=== PATIENT | male | born 1990 | race Caucasian/White ===

== ENCOUNTER 2020-08-07 15:22 | Emergency (ER) | payer OTHER, MEDICAID, SELFPAY ==
[2020-08-07 15:54] VITALS: BP 143/73; PULSE 73; RESP 18; TEMP 36.7; O2SAT 98; BMI 25.8
[2020-08-07 16:08] LABS: Bacteria Urine None Seen; RBC Urine None Seen (0-5/HPF); WBC Urine None Seen (0-5/HPF)
[2020-08-07] MEDS: CYCLOBENZAPRINE 10 MG TABLET PO (16:11)
[2020-08-07] MEDS: KETOROLAC 60 MG/2 ML VIAL 30 MG IM (16:11)
[2020-08-07] MEDS: LIDOCAINE PATCH 1 EACH ADH..PATCH TOP (16:11)
--- NOTE | 2020-08-07 16:22 | ED.BACK ---
HPI - Back Pain/Injury <Rodrigue Mylesmicheal [facility] - Last Filed: 08/07/20 18:59> General Chief Complaint: Back Pain/Injury Stated Complaint: back pain Time Seen by Provider: 08/07/20 15:50 Source: patient Mode of arrival: Ambulatory Limitations: no limitations History of Present Illness HPI Narrative: This is a 29-year-old male, nonsmoker, who is a recovered substance abuse history for heroin presents to ED with chief complain of low lumbar pain for last 4 days. Patient denies related urinary symptoms such as urgency, frequency, dysuria, hematuria. He denies fever, chills, nausea or vomiting. Patient reports pain at times radiates down to bilateral legs and sharp character but in baseline he reports dull aches. Pain worsens with sitting and improves with standing. Patient reports intact sensation in groin. Denies incontinence for bowel or bladder. Patient denies chest pain, dyspnea, or abdominal pain or back rash. Patient was traveling from [facility] coming home experiencing worsening back stiffening and pain with radiating pressure to his bilateral testicles. He denies mass or swelling to testes. Patient had used Tylenol 2 tabs and ibuprofen alternating every 3-4 last couple of days and had use cool packs and warm rice bag, hot tubs. He felt better with warm packs and hot tub use. Related Data Home Medications Medication Instructions Recorded Confirmed Motrin 08/07/20 Tylenol 08/07/20 Previous Rx's Medication Instructions Recorded cyclobenzaprine 10 mg PO BID PRN #8 tab 08/07/20 lidocaine 2 patch TOPICAL DAILY PRN #30 ea 08/07/20 Allergies Allergy/AdvReac Type Severity Reaction Status Date / Time No Known Drug Allergies Allergy Verified 08/07/20 16:00 Review of Systems <Rodrigue La [facility] - Last Filed: 08/07/20 18:59> Review of Systems Narrative: General: Denies fever, chills, fatigue, malaise, sweats. HEENT: Denies sinus pain, ear pain, sore throat, difficulty swallowing, dizziness. Respiratory: Denies dyspnea, cough, wheezing, hemoptysis, sputum. Cardiovascular: Denies chest pain, palpitations, orthopnea, edema. Gastrointestinal: Denies nausea, vomiting, abdominal pain, diarrhea, constipation, melena. : See HPI Musculoskeletal: See HPI Skin: Denies rash, skin lesions, or other. Neurologic: Denies weakness, headache, numbness, change in speech, confusion, seizures, incoordination. Psychiatric: No concerning psychosocial issues. 12-point review of systems is negative except for those stated above. Patient History <RU Roman - Last Filed: 08/07/20 18:59> Surgical History No pertinent past surgical history Social History Smoking Status: Never smoker Smoking Status: Never smoker alcohol intake frequency: 0-2 drinks per day Substance Use Type: marijuana Exam <ALE RomanP - Last Filed: 08/07/20 18:59> Narrative Exam Narrative: GEN: Alert, oriented x 3, well appearing and nourished, and in no acute distress. Head: Normal cephalic, atraumatic. No scalp or temporal tenderness, palpable mass or rash. EYES: Pupils are equal, round, and reactive to light and accommodation. Extraocular muscles are intact bilaterally. There is no subconjunctival hemorrhage, exudate and sclera non-icteric. ENT: Hearing grossly intact. Airway patent. Neck: Trachea in midline. No JVD, non-tender without lymphadenopathy. No masses or thyroid megaly. Supple, non-tender and no meningeal signs. CARDIAC: Normal regular rate and rhythm without murmurs, gallops, or rubs. No chest wall tenderness. No peripheral edema, cyanosis or pallor. Capillary refill is less than 2 seconds. RESPIRATORY: Lungs are clear to auscultate bilaterally. No cough, wheezes, rales, or rhonchi. No stridor, respiratory distress, increase work of breathing, or accessary muscle used. ABD: Abdomen soft, nontender and non-distended. No guarding or rebound tenderness to palpate. Bowel sounds are normal in all 4 quadrants. There is no palpable masses or organomegaly. EXT: Full painless ROM of all extremities with no loss of sensation, strength, effusion or edema. Increasing back pain with bilateral plantar flexion. Bilateral patellar reflexes intact. SKIN: Warm, dry, normal color for patient. No erythema, lesions or rash over visible areas. BACK: No deformity or crepitance or rash. Tender to palpate in spinous, paraspinous in lumbar region. No mass, erythema, or warmth. Patient ambulatory. NEUROLOGICAL: Alert and oriented to place, time and person. Sensation and motor function intact bilaterally. No facial droops, dysphasia. PSYCHIATRIC: Good judgement and reason, without hallucinations, abnormal affect or abnormal behaviors during the examination. Patient is not suicidal. Initial Vital Signs Initial Vital Signs: Vital Signs Temperature 98.0 F 08/07/20 15:54 Pulse Rate 73 08/07/20 15:54 Respiratory Rate 18 08/07/20 15:54 Blood Pressure 143/73 H 08/07/20 15:54 Pulse Oximetry 98 08/07/20 15:54 External: normal external exam, no edema, no erythema, no scrotal swelling and nontender Penis: normal penis Meatus: meatus normal Scrotum: scrotum normal, no ecchymosis, not edematous, not erythematous, no hydroceles, no masses and no scrotal swelling Testes: normal, testicular lie normal, no blue dot sign, not enlarged and no epidiymal masses Other: Chaperoned by Lito Gibbons <Radha Dumont DO - Last Filed: 08/08/20 07:37> Initial Vital Signs Initial Vital Signs: Vital Signs Temperature 98.0 F 08/07/20 15:54 Pulse Rate 73 08/07/20 15:54 Respiratory Rate 18 08/07/20 15:54 Blood Pressure 143/73 H 08/07/20 15:54 Pulse Oximetry 98 08/07/20 15:54 Scores <RU Roman - Last Filed: 08/07/20 18:59> GCS Dell coma scale eye opening: Spontaneous Dell coma scale verbal response: Orientated [place] coma scale motor response: Obey commands Dell coma scale total score: 15 Course <RU Roman - Last Filed: 08/07/20 18:59> Orders Ordered: Discontinued Medications Cyclobenzaprine HCl (Cyclobenzaprine 10 Mg Tablet) 10 mg PO NOW ONE Stop: 08/07/20 16:04 Last Admin: 08/07/20 16:11 Dose: 10 mg Documented by: DENNY Ketorolac Tromethamine (Ketorolac 60 Mg/2 Ml Vial) 30 mg IM NOW ONE Stop: 08/07/20 16:04 Last Admin: 08/07/20 16:11 Dose: 30 mg Documented by: DENNY Lidocaine (Lidocaine Patch 1 Each Adh..Patch) 1 each TOP NOW ONE Stop: 08/07/20 16:04 Last Admin: 08/07/20 16:11 Dose: 1 each Documented by: DENNY Reevaluation(s) Reevaluation #1: Pain starting to improve. Time: 16:58 Vital Signs Vital signs: Vital Signs - 8 hr 08/07/20 15:54 08/07/20 17:04 Temperature 98.0 F Pulse Rate 73 63 Respiratory Rate 18 18 Blood Pressure 143/73 H 122/68 Pulse Oximetry 98 99 <Radha Dumont DO - Last Filed: 08/08/20 07:37> Orders Ordered: Discontinued Medications Cyclobenzaprine HCl (Cyclobenzaprine 10 Mg Tablet) 10 mg PO NOW ONE Stop: 08/07/20 16:04 Last Admin: 08/07/20 16:11 Dose: 10 mg Documented by: DENNY Ketorolac Tromethamine (Ketorolac 60 Mg/2 Ml Vial) 30 mg IM NOW ONE Stop: 08/07/20 16:04 Last Admin: 08/07/20 16:11 Dose: 30 mg Documented by: DENNY Lidocaine (Lidocaine Patch 1 Each Adh..Patch) 1 each TOP NOW ONE Stop: 08/07/20 16:04 Last Admin: 08/07/20 16:11 Dose: 1 each Documented by: DENNY Vital Signs Vital signs: Vital Signs - 8 hr 08/07/20 15:54 08/07/20 17:04 Temperature 98.0 F Pulse Rate 73 63 Respiratory Rate 18 18 Blood Pressure 143/73 H 122/68 Pulse Oximetry 98 99 MDM - Back Pain/Injury <RU Roman - Last Filed: 08/07/20 18:59> Differential Diagnosis Differential diagnosis: Likely strain of lumbar region, pyelonephritis and other (Renal stone, testicular torsion) Medical Records Attestation: I reviewed the patient's medical records. Lab Data Attestation: I reviewed the patient's lab results. Labs: Lab Results 08/07/20 Range/Units 16:07 Urine RBC None seen (0-5/HPF) Urine WBC None seen (0-5/HPF) Ur Squamous Epith Cells 0-1 /hpf (0-5/HPF) Urine Bacteria None seen (None) Ur Culture Indicated? Cult not indicated Urine Dip Bedside Urine Glucose Negative Bedside Urine Bilirubin + 1 Bedside Urine Ketone +/- 5 Urine Specific [place] 1.030 Bedside Urine Occult Blood - Negative Bedside Urine pH 5.5 Bedside Urine Protein +/- 15 Bedside Urine Urobilinogen - Negative Bedside Urine Nitrite - Negative Bedside Urine Leukocytes - Negative Esterase MDM Narrative Medical decision making narrative: This is a 29-year-old male presents to ED with nontraumatic low back pain for last 4 days without incontinence, saddle anesthesia, fever, rash, loss of strength in lower extremities, urinary symptoms. Patient states sitting prolonged time worsens the pain and standing improves the pain. He has been using hot and cold packs, hot tubs and [id number] Tylenol and Motrin without significant improvement. Patient was riding car 2 hours before coming into ED complaining worsening discomfort and neck stiffness. Physical exam was unremarkable. exam was done with unremarkable findings given patient reported back pain with radiating pressure discomfort to his groin region. Patient was medicated with IM Toradol, Lidocaine patch, and Flexeril and patient reports starting to improve symptoms when he was re-evaluated. He was discharged to home with same medications and return precautions discussed. Patient advised to return to ED if groin or testicular discomfort recurs or worse than which warrants ultrasound test to rule out testicular torsion. Patient verbalized understanding and agreement with the treatment plan. <Radha Dumont, DO - Last Filed: 08/08/20 07:37> Lab Data Labs: Lab Results 08/07/20 Range/Units 16:07 Urine RBC None seen (0-5/HPF) Urine WBC None seen (0-5/HPF) Ur Squamous Epith Cells 0-1 /hpf (0-5/HPF) Urine Bacteria None seen (None) Ur Culture Indicated? Cult not indicated Urine Dip Bedside Urine Glucose Negative Bedside Urine Bilirubin + 1 Bedside Urine Ketone +/- 5 Urine Specific [place] 1.030 Bedside Urine Occult Blood - Negative Bedside Urine pH 5.5 Bedside Urine Protein +/- 15 Bedside Urine Urobilinogen - Negative Bedside Urine Nitrite - Negative Bedside Urine Leukocytes - Negative Esterase Discharge Plan Departure Patient Disposition: Home Clinical Impression: Lumbar spine strain Qualifiers: Encounter type: initial encounter Qualified Code(s): S39.012A - Strain of muscle, fascia and tendon of lower back, initial encounter Instructions: DI for Low Back Pain, DI for Back Spasm Activity Restrictions/Additional Instructions: You have been diagnosed with [lumbar strain and back spasm]. What to do: *Take your medications as directed. Flexeril can cause drowsiness so please take precautions not driving, operating heavy equipments, or drinking alcohol. *Follow up with your primary care provider in 2-3 days, call for an appointment. Let them know you were seen in the ED and that we asked you to be seen in follow up. *Return to ED if you have any new, worsening, or concerning symptoms, such as [chest pain, breathing difficulty, unable to tolerate fluids, weakness/numbness/tingling to lower extremities, groin, fever, rash on back, recurring or worsening testicular pain or swelling or any acute concerns]. Prescriptions: New lidocaine 5 % adhesive patch,medicated 2 patch topical DAILY PRN (Reason: back pain) Qty: 30 RF: 0 cyclobenzaprine 10 mg tablet 10 mg PO BID PRN (Reason: muscle spasm) Qty: 8 RF: 0 No Action Motrin RF: 0 Tylenol RF: 0 Referrals: [facility] [Outside] Jeremy Tan MD [Primary Care Provider] - <Radha Dumont DO - Last Filed: 08/08/20 07:37> [facility] Attestation: I was immediately available in the department for consultation. This documentation has been reviewed and I agree with assessment and plan. Supervised by Radha Dumont DO
[2020-08-07 16:37] LABS: Culture Indicated Urine Cult Not Indicated; Squamous Epithelial Cell Urine 0-1 /HPF (0-5/HPF)
[2020-08-07 17:04] VITALS: BP 122/68; PULSE 63; RESP 18; O2SAT 99
== END 2020-08-07 17:19 | disposition home or self-care (01) ==
PROVIDERS: Emergency Provider Nurse Practitioner Family; PCP Family Medicine
DX: S39.012A Strain of muscle, fascia and tendon of lower back, initial encounter (principal); Y99.0 Civilian activity done for income or pay
CPT/HCPCS: 81003; 81015; 96372; 99282; 99283; J1885